=== PATIENT | male | born 1950 | race Caucasian/White ===

== ENCOUNTER 2020-12-20 11:10 | Outpatient (CLI) | payer MEDICARE, OTHER ==
[2020-12-21 01:30] LABS: SARS-CoV-2 PCR by NAA Not Detected (NotDetected)
== END 2020-12-20 11:11 | disposition home or self-care (01) ==
LOC: CSHLAB 11:10
PROVIDERS: ATTEND Specialist
DX: Z20.822 Contact with and (suspected) exposure to COVID-19 (principal)
CPT/HCPCS: 87635; U0003; U0005

== ENCOUNTER → 2020-12-24 | Day surgery (SDC) | payer MEDICARE, OTHER ==
[~2020-12-24] MED LIST: Lidocaine 1% PF 5 ML VIAL ONE; PROPOFOL 40 ML ONE
[2020-12-24 06:52] VITALS: BMI 24.1
== END ==
LOC: CSHSDC 06:14
PROVIDERS: ATTEND Specialist
DX: I48.11 Longstanding persistent atrial fibrillation (principal); Z79.01 Long term (current) use of anticoagulants; K21.9 Gastro-esophageal reflux disease without esophagitis; Z79.899 Other long term (current) drug therapy
CPT/HCPCS: 92960; 93005; 93010; 93312; J2704